=== PATIENT | female | born 1950 | race Caucasian/White ===

== ENCOUNTER → 2017-08-29 | Outpatient (CLI) | payer OTHER | END | disposition home or self-care (01) | LOC: C.PAPS 09:20 | PROVIDERS: ATTEND Family Medicine | DX: Z00.00 Encounter for general adult medical examination without abnormal findings (principal) ==

== ENCOUNTER → 2017-10-06 | Outpatient (CLI) | payer OTHER ==
--- NOTE | 2017-10-07 07:45 | MAMMOGRAPHY REPORT ---
BILATERAL DIGITAL SCREENING MAMMOGRAM TOMOSYNTHESIS WITH CAD: 10/06/2017 CLINICAL HISTORY: Routine screening. Patient has no complaints. TECHNIQUE: Breast tomosynthesis in addition to standard 2D mammography was performed. Current study was also evaluated with a Computer Aided Detection (CAD) system. COMPARISON: Comparison is made to exams dated: 02/19/2016 mammogram, 02/14/2015 mammogram, 12/03/2013 m ammogram, 11/15/2010 mammogram, 11/07/2010 mammogram, and 08/09/2009 mammogram - [facility]. BREAST COMPOSITION: There are scattered areas of fibroglandular density in both breasts. FINDINGS: There is a possible grouping of microcalcifications in the upper outer middle one third of the left breast, for which additional spot magnification views are recommended. Possible architectu ral distortion in the medial, middle one third of the left breast, best seen on the CC view, but thou ght to project inferiorly based on the MLO view, for which additional spot compression tomosynthesis views and possible ultrasound are recommended. There are mild vascular calcifications in the breasts. No other suspicious mass, architectural distor tion or cluster of microcalcifications is seen. IMPRESSION: ACR BI-RADS CATEGORY 0: INCOMPLETE EVALUATION: NEED ADDITIONAL IMAGING EVALUATION The possible grouping of microcalcifications in the upper outer quadrant of the left breast and possi ble area of architectural distortion in the medial left breast need additional imaging evaluation. The patient will be called to schedule an appointment. Approximately 10% of breast cancers are not detected with mammography. A negative mammographic report should not delay biopsy if a clinically suggestive mass is present. Génesis Lemus M.D. ay/:10/06/2017 13:31:38 Neurological Surgery Teacher: Natasha GE(R)(M), [facility] letter sent: Addl Imaging 0 BI-RADS Code: ACR BI-RADS Category 0: Incomplete Evaluation: Need Additional Imaging Evaluation
== END | disposition home or self-care (01) ==
LOC: C.MAMM 12:51
PROVIDERS: ATTEND Family Medicine
DX: Z12.31 Encounter for screening mammogram for malignant neoplasm of breast (principal); R92.0 Mammographic microcalcification found on diagnostic imaging of breast

== ENCOUNTER → 2017-10-15 | Outpatient (CLI) | payer OTHER ==
--- NOTE | 2017-10-15 15:31 | MAMMOGRAPHY REPORT ---
UNILATERAL LEFT DIGITAL DIAGNOSTIC MAMMOGRAM TOMOSYNTHESIS AND TARGETED LEFT ULTRASOUND: 10/15/2017 CLINICAL HISTORY: 67-year-old woman called back from screening mammography for a possible area of arc hitectural distortion in the medial left breast, and left upper outer quadrant microcalcifications. TECHNIQUE: Spot magnification left CC, ML; spot compression tomosynthesis left CC and MLO views were obtained. COMPARISON: Comparison is made to exams dated: 10/06/2017 mammogram - , mammogram, 02/14/2015 mammogram, 12/03/2013 mammogram, 11/15/2010 mammogram, and 11/07/2010 mamm [facility]. BREAST COMPOSITION: There are scattered areas of fibroglandular density in the left breast. FINDINGS: The spot magnification views of the left breast demonstrate 2 coarse benign calcifications and loosely grouped very faint punctate/amorphous microcalcifications spanning approximately 2 cm in the upper outer middle to posterior left breast. There is no associated asymmetry, architectural dis tortion or mass. When comparing back to prior available mammograms, the fainter microcalcifications have likely been present dating back to 2013 and are therefore likely benign, possibly increased in c onspicuity due to mammography unit and technique. The coarser calcifications have a benign morpholog y. The spot compression tomosynthesis views of the left breast demonstrate effacement of the questionabl e area of distortion in the medial, middle one third of the breast. There is no definite persistent mass or focal area of architectural distortion identified. Targeted ultrasound was performed throughout the medial left breast in the area of effacing distortio n. There is no evidence of a suspicious mass. However, incidentally identified in the 10:00 left br east, 1 cm from the nipple, is an oval parallel circumscribed hypoechoic solid versus cystic mass, wi thout evidence of posterior acoustic enhancement or posterior shadowing. This mass measures 4.2 x 2. 1 x 7.1 mm and most likely represents a complicated cyst or benign fibroadenoma. However, given that it is newly visualized on ultrasound, a six-month follow-up targeted ultrasound is recommended to en sure stability. IMPRESSION: ACR-BI-RADS CATEGORY 3: PROBABLY BENIGN, TARGETED ULTRASOUND ACR-BI-RADS CATEGORY 3: PRO BABLY BENIGN 1. There are loosely grouped punctate and amorphous as well as coarse calcifications spanning 2 cm i n the left upper outer quadrant, in which many of the sphincter calcifications have likely been prese nt dating back to 2013 but are better visualized due to technique. Nevertheless, a short interval fo llow-up left diagnostic mammogram including spot magnification views is recommended to ensure stabili ty in 6 months. 2. There is effacement of the questionable area of architectural distortion in the medial left breas t, and no suspicious sonographic correlate or architectural distortion appreciated on ultrasound. Niraj ramirez, incidentally seen in the 10:00 left breast, 1 cm from the nipple is a benign-appearing oval ci rcumscribed 7 mm mass for which a repeat targeted ultrasound is recommended to ensure stability in 6 months. These results and recommendations were discussed with the patient at the time of the exam. Approximately 10% of breast cancers are not detected with mammography. A negative mammographic report should not delay biopsy if a clinically suggestive mass is present. Génesis Lemus M.D. ay/:10/15/2017 11:51:38 Director Of Player Personnel: uSzanne GE(Kriss)(M), letter sent: Follow Up Recommended 3 BI-RADS Code: ACR-BI-RADS Category 3: Probably Benign Ultrasound BI-RADS: ACR-BI-RADS Category 3: Pr obably Benign
== END | disposition home or self-care (01) ==
LOC: C.MAMM 09:31
PROVIDERS: ATTEND Family Medicine
DX: R92.0 Mammographic microcalcification found on diagnostic imaging of breast (principal)

== ENCOUNTER 2019-08-29 23:17 | Observation (INO) ==
[2019-08-29] MEDS ORDERED: ALBUT/IPRATROP 3MG/0.5MG NEB 3 ML VIAL NEB STA (23:43)
[2019-08-29] MEDS ORDERED: ACETAMINOPHEN 500 MG TAB PO STA (23:43)
[2019-08-29] MEDS ORDERED: SODIUM CHLORIDE 0.9% 1000ML 1,000 ML IV ONE (23:43)
[2019-08-29] MEDS ORDERED: HYDROCODONE/HOMATROPINE SYRUP 5MG/1.5MG 5ML UDP PO STA (23:43)
[2019-08-30 00:15] LABS: Basophils # (auto) 0.02 K/uL (0-0.2); Basophils % (auto) 0.2 %; Eosinophils # (auto) 0.08 K/uL (0-0.5); Eosinophils % (auto) 0.6 %; Hematocrit (blood only) 43.5 % (37-47); Immature Granulocytes # (auto) 0.03 K/uL (0.00-0.02); Immature Granulocytes % (auto) 0.2 %; Lymphocytes # (auto) 1.32 K/uL (1.2-3.4); Lymphocytes % (auto) 10.3 %; Mean Corpuscular Hemoglobin 30.1 pg (25-34); Mean Corpuscular Hgb Conc 34.5 g/dL (32-36); Mean Corpuscular Volume 87.3 fL (80-100); Monocytes # (auto) 0.75 K/uL (0.11-0.59); Monocytes % (auto) 5.9 %; Neutrophils # (auto) 10.57 K/uL (1.4-6.5); Neutrophils % (auto) 82.8 %; Platelet Count 279 K/uL (130-400); RDW Coefficient of Variation 13.8 % (11.5-14.5); RDW Standard Deviation 44.2 fL (36.4-46.3); Red Blood Count 4.98 M/uL (4.2-5.4); White Blood Count 12.77 K/uL (4.8-10.8)
[2019-08-30 00:29] LABS: Alanine Aminotransferase 30 U/L (12-78); Albumin Level 3.9 gm/dl (3.4-5.0); Aspartate Aminotransferase 23 U/L (15-37); BUN Creatinine Ratio 12.8 (10-20); Blood Urea Nitrogen 13 mg/dl (7-18); Carbon Dioxide 25 mmol/L (21-32); Chloride 98 mmol/L (98-107); Creatinine Clr Calc Pharmacy 46.9 ml/min; Est GFR (African American) 69.1; Est GFR (Non-African American) 59.6; Glucose 148 mg/dl (70-99); Potassium 3.3 mmol/L (3.5-5.1); Sodium 131 mmol/L (136-145)
[2019-08-30 00:33] LABS: Albumin Globulin Ratio 0.9 (0.9-2); Alkaline Phosphatase 87 U/L (45-117); Bilirubin,Total 0.6 mg/dl (0.2-1); Globulin 4.1 gm/dl (2.5-4.0); Troponin I < 0.015 ng/ml (0-0.045)
[2019-08-30] MEDS ORDERED: AZITHROMYCIN 500 MG in DEXTROSE 5% 250 ML IV ONE (01:51)
[2019-08-30] MEDS ORDERED: cefTRIAXone SODIUM 1,000 MG/50 ML BAG IV STA (01:51)
--- NOTE | 2019-08-30 02:53 | History & Physical Report ---
Date of Service August 30, 2019 Assessment & Plan (1) Pneumonia: 69yo C female presenting with cough/SOB, LLL PNA in setting of probable Influenza A ( recently tested positive for Influenza A as did grandchildren). Febrile, tachycardic and hypoxic on arrival now improved. Patient is breathing comfortably on 2L NC, saturating 94%. In setting of probable Influenza A concern for superimposed bacterial PNA, streptococcus/staphylococcus. -Admit to medical floor -Continue Tamiflu 75mg po BID. -Vancomycin, Ceftriaxone, Azithromycin -MRSA nasal swab -Continue supplemental O2 as needed -Albuterol HFA as needed -Droplet precautions Present on Admission?: Yes (2) Influenza: Tamiflu 75mg po BID as above -Supportive care, Tylenol, Mucinex, supplemental O2 Present on Admission?: Yes (3) Benign essential hypertension: Blood pressure stable 161/72 -Continue Amlodipine, Lisinopril/HCTZ -Continue to monitor F/E/N - NSS with KCL 20mEq, 20mEq KCL PO, monitor electrolytes, heart healthy diet as tolerated Ppx - Low risk for DVT Code - Full per discussion with patient, at bedside Dispo - Admit to medical floor, supplemental O2 and IV antibiotics Present on Admission?: Yes History of Present Illness Chief Complaint: Pneumonia, presumed influenza Primary Care Provider: Raj Grey MD Demetria Beebe is a 69yo C female with history of HTN/HLP/GERD presenting with cough/SOB. Patient's was recently diagnosed with Influenza A and PNA. He is presently on Tamiflu and Azithromycin. Patient reports a persistent cough over the last 6-7 days as well as body aches, fevers, chills and sweats. She was started on Tamiflu 75mg po BID x 5 days on 08/26/19. Earlier today she felt slightly improved, however, developed some pleuritic chest discomfort and shoulder pain this evening which prompted her to come to the ER. She reports feeling mildly short of breath, occasional chest heaviness. Otherwise, denies palpitations/abdominal pain/nausea/vomiting/diarrhea. ON arrival to the ER patient febrile 38.4, tachycardic at 103bpm, tachypneic at 22 bpm and saturating 89% on room air. She was administered an Albuterol neb and placed on supplemental O2 with improvement in saturation to 94% on 2L. ER Course: Tylenol, Albuterol, Azithromycin, Ceftriaxone, Hydrocodone, NSS Allergies Allergy/AdvReac Type Severity Reaction Status Date / Time PPD Allergy Unknown Uncoded 08/30/19 00:05 Home Medications Home Medications Medication Instructions Recorded Confirmed Type calcium carb-Ca gluc 500 mg 1 tab PO DAILY #90 tab 01/07/19 08/30/19 Rx calcium-magnesium ox-Mg gluc 250 mg tablet cholecalciferol (vitamin D3) 125 5,000 units PO DAILY #90 tab 01/07/19 08/30/19 Rx mcg (5,000 unit) tablet multivitamin 1 cap PO DAILY #90 cap 01/07/19 08/30/19 Rx selenium 100 mcg tablet 100 mcg PO DAILY #90 tab 01/07/19 08/30/19 Rx vitamin E succinate 200 unit tablet 200 units PO DAILY #90 tab 01/07/19 08/30/19 Rx albuterol sulfate 90 mcg/actuation 2 puffs INH QID PRN #18 gm 04/12/19 08/30/19 Rx aerosol inhaler amlodipine 10 mg tablet 10 mg PO DAILY #90 tab 05/24/19 08/30/19 Rx lisinopril 20 1 tab PO DAILY #90 tab 07/08/19 08/30/19 Rx mg-hydrochlorothiazide 12.5 mg tablet ascorbic acid (vitamin C) 1,000 mg 1,000 mg PO DAILY tab 07/29/19 08/30/19 History tablet,extended release oseltamivir 75 mg capsule 75 mg PO BID 5 Days #10 cap 08/26/19 08/30/19 Rx Past Med/Surg History Medical History Benign essential hypertension Chronic GERD Dyslipidemia (Acute) Osteopenia Vitamin D deficiency (Acute) Surgical History H/O oophorectomy History of cholecystectomy Family History Mother Asthma Hypertension Cancer Father Stroke Grandmother Breast cancer Aunt Colorectal cancer Grandfather Myocardial infarction Other No family history of bleeding disorder Social History marital status: Current Living Situation: Spouse current occupational status: retired Feels Safe at Home: Yes Smoking Status: Never smoker Second Hand Exposure: No ; Hx Alcohol Use: No Hx Substance Use: No Dental Care, Regularly: Yes Physical Activity Frequency: 1-2 Times per Week Seatbelt Use: always Do you think of yourself as: straight/heterosexual Review of Systems Review of Systems: All systems reviewed & are unremarkable except as noted in HPI & below Physical Exam Physical Exam: General: patient ill in appearance, +cough, NAD, non-toxic in appearance, AA&O x 4 Skin: warm, dry, intact, no rashes or lesions HEENT: NC/AT, PERRL, EOMI, anicteric sclera, conjunctiva without injection, external ear normal to inspection and nontender, nares patent, moist mucus membranes, dentition intact, no oropharyngeal lesions, neck supple, trachea mid line, no LAD, no thyromegaly, no JVD Heart: +S1/S2, regular, no m/r/g Lungs: equal air entry bilaterally, +faint crackles in left base, no rhonchi/wheeze Abd: +BS, soft, NT/ND, no masses/organomegaly/ascites Ext: warm, 2+ pulses in UE/LE bilaterally, no clubbing/cyanosis or edema Neuro: nonfocal, patient AA&O x 4, speech intact, no facial droop, moving all extremities on command with equal strength 5/5 Results & Data Vital Signs (Past 12 Hours) Vital Signs Temp Pulse Pulse Resp BP Pulse Ox 08/30/19 01:36 89 L 08/30/19 01:30 89 L 08/30/19 01:20 92 08/30/19 01:00 88 18 89 L 08/30/19 00:50 91 H 19 90 08/30/19 00:40 92 H 20 91 08/30/19 00:30 97 H 20 92 08/30/19 00:20 97 H 22 95 08/30/19 00:17 102 H 26 H 95 08/30/19 00:01 97 H 18 98 08/29/19 23:27 38.4 C H 103 H 22 161/72 H 97 Laboratory Results Lab Results 08/29/19 08/29/19 08/29/19 Range/Units 23:57 23:57 23:57 WBC 12.77 H (4.8-10.8) K/uL RBC 4.98 (4.2-5.4) M/uL Hgb 15.0 (12.0-16.0) g/dL Hct 43.5 (37-47) % MCV 87.3 (80-100) fL MCH 30.1 (25-34) pg MCHC 34.5 (32-36) g/dL RDW Std Deviation 44.2 (36.4-46.3) fL RDW Coeff of Usman 13.8 (11.5-14.5) % Plt Count 279 (130-400) K/uL MPV 9.0 (7.4-10.4) fL Immature Gran % (Auto) 0.2 % Neut % (Auto) 82.8 % Lymph % (Auto) 10.3 % [place] % (Auto) 5.9 % Eos % (Auto) 0.6 % Baso % (Auto) 0.2 % Immature Gran # (Auto) 0.03 H (0.00-0.02) K/uL Neut # (Auto) 10.57 H (1.4-6.5) K/uL Lymph # (Auto) 1.32 (1.2-3.4) K/uL [place] # (Auto) 0.75 H (0.11-0.59) K/uL Eos # (Auto) 0.08 (0-0.5) K/uL Baso # (Auto) 0.02 (0-0.2) K/uL Absolute Nucleated RBC 0.00 (0-0) K/uL Nucleated RBC % (auto) 0.0 % Sodium 131 L (136-145) mmol/L Potassium 3.3 L (3.5-5.1) mmol/L Chloride 98 (98-107) mmol/L Carbon Dioxide 25 (21-32) mmol/L Anion Gap 9.0 (3-11) BUN 13 (7-18) mg/dl Creatinine 0.97 (0.6-1.2) mg/dl Est Cr Clr Drug Dosing 46.9 ml/min Est GFR ( Amer) 69.1 Est GFR (Non-Af Amer) 59.6 BUN/Creatinine Ratio 12.8 (10-20) Glucose 148 H (70-99) mg/dl Lactate 1.8 (0.4-2.0) mmol/L Calcium 9.0 (8.5-10.1) mg/dl Total Bilirubin 0.6 (0.2-1) mg/dl AST 23 (15-37) U/L ALT 30 (12-78) U/L Alkaline Phosphatase 87 (45-117) U/L Troponin I < 0.015 (0-0.045) ng/ml Total Protein 8.0 (6.4-8.2) gm/dl Albumin 3.9 (3.4-5.0) gm/dl Globulin 4.1 H (2.5-4.0) gm/dl Albumin/Globulin Ratio 0.9 (0.9-2) Diagnostic Findings CXR - possible LLL infiltrate, no clear rib fractures Code Status & VTE Plan Code Status FULL VTE Prophylaxis Plan VTE Prophylaxis will be ordered: Yes PG Care Time/CCT Total # of Minutes Spent Total Time Spent with Patient: Total time spent is greater than 50% in coordination of care (as documented) at patient's floor/unit and/or counseling patient: Coding Level of Care Code 32378 OBS Care - Level 2 Diagnoses Pneumonia J18.9 Pneumonia type: due to unspecified organism Laterality: left Lung location: lower lobe of lung Influenza J11.1 Benign essential hypertension I10 (1) Pneumonia Pneumonia type: due to unspecified organism Laterality: left Lung location: lower lobe of lung Qualified Code(s): J18.9 - Pneumonia, unspecified organism
[2019-08-30] MEDS ORDERED: POTASSIUM CHLORIDE 20 MEQ TABCR PO STA (04:13)
[2019-08-30] MEDS ORDERED: ONDANSETRON INJ 2 MG/ML 2 ML VIAL IV PRN (04:13)
[2019-08-30] MEDS ORDERED: VANCOMYCIN HCL 1,000 MG in SODIUM CHLORIDE 0.9% 250 ML IV SCH (04:13)
[2019-08-30] MEDS ORDERED: VANCOMYCIN CONSULT ACTIVE PRN (04:13)
[2019-08-30] MEDS ORDERED: ALBUTEROL HFA 8 GM INHALER INH PRN (04:13)
[2019-08-30] MEDS ORDERED: ACETAMINOPHEN 325 MG TAB PO PRN (04:13)
[2019-08-30 04:29] LABS: Magnesium 1.7 mg/dl (1.8-2.4); Phosphorus 2.7 mg/dl (2.5-4.9)
[2019-08-30] MEDS: NSS + 20MEQ KCL 20 MEQ/1,000 ML BAG IV SCH ×2 (04:53→18:24)
--- NOTE | 2019-08-30 05:32 | Emergency Department Note ---
Entered by Nicolette Matamoros acting as a scribe for Jhonatan Sierra MD ED Provider Note Name: LAWRENCE VARGAS Age: 69 Arrives Via: Walk-In Informant: Patient CC: Flu Like Symptoms HPI: [id number] arrives for evaluation of flu like symptoms. The patient states that her was recently diagnosed with influenza A 1 week ago. She reports that she began to experience intermittent flu like symptoms 6 days ago including a persistent cough and rhinorrhea. She was prescribed Tamiflu 2 days ago for her symptoms. Today she was coughing and suddenly began to experience sharp pain on the left side of her chest that radiates into her left flank. She admits that she feels better now and that she felt fine earlier today (cleaned house). Of note, she adds that she pulled a back muscle a few days ago after getting off of the couch. Additionally she had normal PO intake today. The patient took one baby [employer] C[employer]. She denies rashes and recent travel. ROS: See above HPI for pertinent positives & negatives. A total of 10 systems reviewed and were otherwise negative. Past Medical History:HTN, Chronic GERD, Hypercholesterolemia Past Surgical History:Oophorectomy, Cholecystectomy Family History:See Below Social History:Never smoker, no ETOH or drug use Home Medications:See Below Allergies:PPD Vitals: * BP: 161/72 * Pulse: 103 * Resp: 22 * Temp: 38.4 C * O2 Sat: 97 on RA Physical Exam: GENERAL: Patient is ill appearing and in mild distress. EYES: No scleral icterus, unremarkable pupils. ENT: Mucous membranes dry, dehydrated appearing, no nasal congestion. NECK: No masses appreciated, nomeningismus, trachea is midline. Erythema in posterior oropharynx. RESPIRATORY: No dyspnea. Clear to auscultation and equal bilaterally. No rhonchi. Slight wheezing in all lung garcia. CARDIOVASCULAR: Tachycardic rate and regular rhythm.No murmurs, rubs, gallops appreciated. GASTROINTESTINAL: Abdomen soft, non-tender, no peritonitis.Bowel sounds positive.No masses appreciated. BACK: No midline tenderness, no CVA tenderness EXTREMITIES: Normal motion all extremities, no cyanosis, no edema. NEUROLOGIC: Alert and oriented, no acute motor or sensory deficits, no focal weakness, cranial nerves grossly intact. SKIN: No rash, no jaundice, no diaphoresis. Feels warm to touch. ED Course: Prior Medical Record, Triage/Nursing Notes, Medications, Allergies reviewed by Me Vital Signs: reviewed and remarkable for febrile, tachy, HTN Labs:Reviewed and remarkable for mild wbc elevation, normal lactate Interventions: saline lock, Rocephin 1gm IV, azithro 500mg IV, nSS bolus 1 L IV, Duoneb Imaging:X ray results are stated below per my interpretation: Chest with left rib views: 4 view: No acute fracture/pneumothorax, there is LLL infiltrate, no effusion, normal cardiac border. EKG:Per My Interpretation: Indication Left Chest Pain: NSR 100 bpm, qtc 436. No Ectopy. No Ischemia. No previous for comparison laboratory monitor: An Order was placed for continuous cardiac monitoring. The monitor shows a rate of 80 with a normal sinus rhythm and a pulse ox 88-89% on RA. Reassessments/Times: 2337: Past medical records reviewed. The patient was evaluated in room B10. A complete history and physical exam was performed. 0141: I checked on the patient and updated her on test results. She is currently hypoxic at 88% on RA. I discussed plan to admit. The patient verbally expressed understanding and agreement of the treatment plan. The patient will be evaluated for further treatment. 0156: Paged Dr. Muñoz, [facility] Hospitalist. 0213: I spoke to Dr. Muñoz who will further evaluate the patient. Blood cultures have been ordered prior to giving the patient antibiotics. Blood pressure:Elevated - Further Management by Hospitalist Disposition:Hospitalization. Differentials:Differential: Viral, Pharyngitis, Cellulitis, Pneumonia, Influenza, Meningitis, Sepsis, Bacteremia, UTI/Pyelonephritis, Endocrine, Toxicologic, amongst other pathologies entertained. Medical Decision Makin yr old healthy female with history of GERD, vitd deficiency, HTN, HLD, arrives with several days viral like illness and tonight worsening cough and left chest pain. EKG and trop not consistent with ACS. CXR without pneumothorax nor rib fracture appreciated though does have LLL infiltrate. She has already had Tamiflu this evening and given her is Flu A positive and her flu like symptoms this is consistent with influenza, complicated by development of LLL infiltrate on cxr. Labs looking OK. Given terell with improvement in breathing but patient started desating requiring NC O2 despite quite some time post neb. Suspect as hydrated the infiltrate has worsened. Breathing comfortably on NC O2. As requiring NC O2 will need to come in for further management. Given all of this I think it quite unlikely that there is PE/dissection. Stable at time of hospitalization. Impression: Left lower lobe pneumonia Hypoxia Influenza The scribe's documentation has been prepared under my direction and personally reviewed by me in its entirety. I confirm that the note above accurately reflects all work, treatment, procedures, and medical decision making performed by me. Jhonatan Sierra MD Impression & Plan Left lower lobe pneumonia, Influenza, Hypoxia Past Med/Surg History Medical History Benign essential hypertension Chronic GERD Dyslipidemia (Acute) Osteopenia Vitamin D deficiency (Acute) Surgical History H/O oophorectomy History of cholecystectomy Family History Mother Asthma Hypertension Cancer Father Stroke Grandmother Breast cancer Aunt Colorectal cancer Grandfather Myocardial infarction Other No family history of bleeding disorder Social History Preferred Language: Arabic Communication Ability: Effective Flower Picker Required: No Beliefs That Will Affect Care: None marital status: Current Living Situation: Spouse current occupational status: retired Feels Safe at Home: Yes Smoking Status: Never smoker Second Hand Exposure: No ; Hx Alcohol Use: No Hx Substance Use: No Dental Care, Regularly: Yes Physical Activity Frequency: 1-2 Times per Week Seatbelt Use: always Do you think of yourself as: straight/heterosexual Results & Data Vital Signs Vital Signs - 24 hr 08/29/19 23:27 08/30/19 00:01 08/30/19 00:17 Temperature 38.4 C H Temperature Source Oral Pulse Rate 103 H 102 H Pulse Rate [Right Finger] 97 H Pulse Rate from SpO2 Sensor 96 H Respiratory Rate 22 18 26 H Respiratory Effort / Characteristics Non-Labored Spontaneous Blood Pressure 161/72 H Blood Pressure Mean 101 Blood Pressure Position Sitting Pulse Oximetry 97 98 95 Oxygen Delivery Method Room Air Room Air Oxygen Flow Rate Sepsis Recent Fever Within 48 Hours Yes Sepsis Action Taken by Nursing No Action Required Oxygen Flow Rate - Titration Pulse Oximetry Post Tiitration 08/30/19 00:20 08/30/19 00:30 08/30/19 00:40 Temperature Temperature Source Pulse Rate 97 H 97 H 92 H Pulse Rate [Right Finger] Pulse Rate from SpO2 Sensor 97 H 98 H 92 H Respiratory Rate 22 20 20 Respiratory Effort / Characteristics Blood Pressure Blood Pressure Mean Blood Pressure Position Pulse Oximetry 95 92 91 Oxygen Delivery Method Oxygen Flow Rate Sepsis Recent Fever Within 48 Hours Sepsis Action Taken by Nursing Oxygen Flow Rate - Titration Pulse Oximetry Post Tiitration 08/30/19 00:50 08/30/19 01:00 08/30/19 01:20 Temperature Temperature Source Pulse Rate 91 H 88 Pulse Rate [Right Finger] Pulse Rate from SpO2 Sensor 89 88 90 Respiratory Rate 19 18 Respiratory Effort / Characteristics Blood Pressure Blood Pressure Mean Blood Pressure Position Pulse Oximetry 90 89 L 92 Oxygen Delivery Method Oxygen Flow Rate Sepsis Recent Fever Within 48 Hours Sepsis Action Taken by Nursing Oxygen Flow Rate - Titration Pulse Oximetry Post Tiitration 08/30/19 01:30 08/30/19 01:36 08/30/19 02:02 Temperature Temperature Source Pulse Rate 94 H Pulse Rate [Right Finger] Pulse Rate from SpO2 Sensor 85 Respiratory Rate 15 Respiratory Effort / Characteristics Blood Pressure Blood Pressure Mean Blood Pressure Position Pulse Oximetry 89 L 89 L Oxygen Delivery Method Room Air Oxygen Flow Rate 0 Sepsis Recent Fever Within 48 Hours Sepsis Action Taken by Nursing Oxygen Flow Rate - Titration 2 Pulse Oximetry Post Tiitration 93 08/30/19 02:03 08/30/19 02:30 08/30/19 02:39 Temperature Temperature Source Pulse Rate 89 91 H 83 Pulse Rate [Right Finger] Pulse Rate from SpO2 Sensor 88 90 86 Respiratory Rate 20 28 H 20 Respiratory Effort / Characteristics Blood Pressure 131/57 L 127/67 Blood Pressure Mean 82 90 Blood Pressure Position Pulse Oximetry 93 96 97 Oxygen Delivery Method Oxygen Flow Rate Sepsis Recent Fever Within 48 Hours Sepsis Action Taken by Nursing Oxygen Flow Rate - Titration Pulse Oximetry Post Tiitration Laboratory Data Result diagrams: 08/29/19 23:57 08/29/19 23:57 Lab Results 08/29/19 08/29/19 08/29/19 Range/Units 23:57 23:57 23:57 WBC 12.77 H (4.8-10.8) K/uL RBC 4.98 (4.2-5.4) M/uL Hgb 15.0 (12.0-16.0) g/dL Hct 43.5 (37-47) % MCV 87.3 (80-100) fL MCH 30.1 (25-34) pg MCHC 34.5 (32-36) g/dL RDW Std Deviation 44.2 (36.4-46.3) fL RDW Coeff of Usman 13.8 (11.5-14.5) % Plt Count 279 (130-400) K/uL MPV 9.0 (7.4-10.4) fL Immature Gran % (Auto) 0.2 % Neut % (Auto) 82.8 % Lymph % (Auto) 10.3 % [place] % (Auto) 5.9 % Eos % (Auto) 0.6 % Baso % (Auto) 0.2 % Immature Gran # (Auto) 0.03 H (0.00-0.02) K/uL Neut # (Auto) 10.57 H (1.4-6.5) K/uL Lymph # (Auto) 1.32 (1.2-3.4) K/uL [place] # (Auto) 0.75 H (0.11-0.59) K/uL Eos # (Auto) 0.08 (0-0.5) K/uL Baso # (Auto) 0.02 (0-0.2) K/uL Absolute Nucleated RBC 0.00 (0-0) K/uL Nucleated RBC % (auto) 0.0 % Sodium 131 L (136-145) mmol/L Potassium 3.3 L (3.5-5.1) mmol/L Chloride 98 (98-107) mmol/L Carbon Dioxide 25 (21-32) mmol/L Anion Gap 9.0 (3-11) BUN 13 (7-18) mg/dl Creatinine 0.97 (0.6-1.2) mg/dl Est Cr Clr Drug Dosing 46.9 ml/min Est GFR ( Amer) 69.1 Est GFR (Non-Af Amer) 59.6 BUN/Creatinine Ratio 12.8 (10-20) Glucose 148 H (70-99) mg/dl Lactate 1.8 (0.4-2.0) mmol/L Calcium 9.0 (8.5-10.1) mg/dl Phosphorus 2.7 (2.5-4.9) mg/dl Magnesium 1.7 L (1.8-2.4) mg/dl Total Bilirubin 0.6 (0.2-1) mg/dl AST 23 (15-37) U/L ALT 30 (12-78) U/L Alkaline Phosphatase 87 (45-117) U/L Troponin I < 0.015 (0-0.045) ng/ml Total Protein 8.0 (6.4-8.2) gm/dl Albumin 3.9 (3.4-5.0) gm/dl Globulin 4.1 H (2.5-4.0) gm/dl Albumin/Globulin Ratio 0.9 (0.9-2) Administered Medications Potassium Chloride/Sodium Chloride (Normal Saline W/20 Meq Kcl) 20 meq in 1,000 mls @ 80 mls/hr IV .[id number] ANGELITA Stop: 09/29/19 04:29 Last Admin: 08/30/19 04:53 Dose: 80 mls/hr Documented by: [id number] Vancomycin HCl 1,500 mg/ (Sodium Chloride) 530 mls @ 200 mls/hr IV TODAY@0500 ANGELITA Stop: 08/30/19 08:38 Last Admin: 08/30/19 04:53 Dose: 200 mls/hr Documented by: [id number] Discontinued Medications Acetaminophen (Tylenol) 1,000 mg PO NOW STA Stop: 08/29/19 23:44 Last Admin: 08/30/19 00:11 Dose: 1,000 mg Documented by: [id number] Albuterol (Duoneb) 3 ml NEB NOW STA Stop: 08/29/19 23:44 Last Admin: 08/30/19 00:01 Dose: 3 ml Documented by: [id number] Hydrocodone Bit/Homatropine Methylb (Hycodan) 5 ml PO NOW STA Stop: 08/29/19 23:44 Last Admin: 08/30/19 00:11 Dose: 5 ml Documented by: [id number] Sodium Chloride (Nss 1000ml) 1,000 mls @ 999 mls/hr IV .[id number] ONE Stop: 08/30/19 00:43 Last Infusion: 08/30/19 01:15 Dose: 0 mls/hr Documented by: [id number] Admin: 08/30/19 00:12 Dose: 999 mls/hr Documented by: [id number] Ceftriaxone Sodium (Rocephin) 1,000 mg in 50 mls @ 100 mls/hr IV NOW STA Stop: 08/30/19 02:20 Last Infusion: 08/30/19 02:33 Dose: 0 mls/hr Documented by: [id number] Admin: 08/30/19 01:59 Dose: 100 mls/hr Documented by: [id number] Azithromycin 500 mg/ Dextrose 255 mls @ 125 mls/hr IV ONE ONE Stop: 08/30/19 03:53 Last Infusion: 08/30/19 04:47 Dose: 0 mls/hr Documented by: [id number] Admin: 08/30/19 02:34 Dose: 125 mls/hr Documented by: [id number] Potassium Chloride (Klor-Con M20) 20 meq PO NOW STA Stop: 08/30/19 04:14 Last Admin: 08/30/19 04:53 Dose: 20 meq Documented by: [id number] Discharge Plan Visit Data *Final* Discharge Date/Time: 08/30/19 03:40 Chief Complaint: Flu Like Symptoms Stated Complaint: FLU LIKE SYMTOMS, SIDE PAINS,SHOULDER PAINS ED Provider: Jhonatan Sierra Discharge Problem: Left lower lobe pneumonia, Influenza, Hypoxia Patient Disposition: Admitted As Inpatient Discharge Instructions Interventions: ED Discharge Assessment Last Done: 08/30/19 03:40 Discharge Problem: Left lower lobe pneumonia Qualifiers: Pneumonia type: due to unspecified organism Qualified Code(s): J18.9 - Pneumonia, unspecified organism The scribe's documentation has been prepared under my direction and personally reviewed by me in its entirety. I confirm that the note above accurately reflects all work, treatment, procedures, and medical decision making performed by me.
[2019-08-30] MEDS ORDERED: VANCOMYCIN HCL 1,500 MG in SODIUM CHLORIDE 0.9% 500 ML IV SCH (06:00)
--- NOTE | 2019-08-30 06:34 | XRay Report ---
XR ribs LT min 3V w CXR1V CLINICAL HISTORY: Left upper chest pain s/p coughing COMPARISON STUDY: No previous studies for comparison. FINDINGS: Nondisplaced cortical fracture left sixth rib. All remaining ribs are unremarkable. Small parenchymal infiltrate and/or atelectasis left base. No evidence for pneumothorax. IMPRESSION: 1. Nondisplaced cortical fracture left sixth rib. 2. Small parenchymal infiltrate and/or atelectasis left base. ACT 112: Negative or not required by law. The above report was generated using voice recognition software. It may contain grammatical, syntax or spelling errors. Electronically signed by: Kolton Hector M.D. 08/30/2019 6:33 AM
[2019-08-30] MEDS: LISINOPRIL/HCTZ 20/12.5MG 1 TAB TAB PO SCH (08:00)
[2019-08-30] MEDS: guaiFENesin 600 MG TABCR PO SCH ×2 (08:00→21:19)
[2019-08-30] MEDS: AMLODIPINE BESYLATE 5 MG TAB PO SCH (08:01)
[2019-08-30] MEDS: OSELTAMIVIR PHOSPHATE SUSP 30 MG/5 ML UDP PO SCH ×2 (08:03→21:19)
[2019-08-30] MEDS ORDERED: OSELTAMIVIR PHOSPHATE 75 MG CAP PO SCH (09:00)
[2019-08-30] MEDS ORDERED: COUGH DROP (SUGAR FREE) LOZ 24 LOZ/1 BOX BUCCAL PRN (10:45)
--- NOTE | 2019-08-30 14:41 | Electrocardiogram Report ---
Test Reason : Blood Pressure : / mmHG Vent. Rate : 100 BPM Atrial Rate : 100 BPM P-R Int : 150 ms QRS Dur : 086 ms QT Int : 338 ms P-R-T Axes : 067 033 048 degrees QTc Int : 436 ms Normal sinus rhythm Possible Left atrial enlargement Borderline ECG No previous ECGs available Confirmed by Dawson Mariscal ([id number]) on 08/30/2019 2:41:16 PM Referred By: REFERRED SELF Confirmed By:Dawson Mariscal
[2019-08-30] MEDS ORDERED: VANCOMYCIN HCL 750 MG in SODIUM CHLORIDE 0.9% 250 ML IV SCH (16:00)
--- NOTE | 2019-08-30 17:34 | Hospitalist Progress Note ---
Date of Service August 30, 2019 Assessment & Plan (1) Pneumonia: - Pt presented with flu-like symptoms for about 6 days ( and grandchildren tested pos for flu A) - was feeling better but then her symptoms worsened -- No recent travel or exposures to someone in majorly affected coronavirus areas -- Febrile, tachy, and hypoxic on arrival - all now improved - Appropriate saturations on RA; Suspected superimposed bacterial infection on a recovering influenza - Continue renally adjusted Tamiflu; Ceftriaxone/Zithromax - MRSA swap negative and will D/C Vanc - Albuterol PRN; Mucinex BID; Droplet precautions (2) Influenza: -Supportive care - treatment as discussed above -- Given positive family members and started treatment as outpatient - no reason to test in-house (3) Rib fracture: - CXR/Rib series - nondisplaced cortical fracute of L 6th rib - This may be partially in the setting of osteoporosis/frequent coughing - reports pain is controlled at this time (4) Benign essential hypertension: - Stable - Continue Amlodipine 10 mg daily; Lisinopril/HCTZ daily Disposition: Off supplemental O2. Will monitor through the day - if continues to do well can D/C home tomorrow with oral Abx Admission and Anticipated Discharge Date Admission Date: August 30, 2019 Supervising Physician Co-Signing Physician Notes Attending Attestation - Chart reviewed in detail, care plan d/w JIM Guerra. I agree w/ the moon components of her documentation. 69yo female w/ fluA infection. Probable bacterial superinfection with LLL pneumonia. Left-sided solitary rib fracture - suspect Fx occurred due to coughing. Also with hyponatremia, hypokalemia, and hypomagnesemia - replace all electrolyte deficiencies. HCTZ use could explain the low Na, K, and mag. Repeat labs am. Jamarcus Pereira MD Subjective Reports feeling a bit better since coming in. Having a productive cough. Some heaviness in the L chest around that L side which would correlate with the rib fx possible. Pain is pleuritic. No longer having desaturations and no further tachycardia since admission. Given how her symptoms were improving then worsened will treat for a secondary pneumonia. She reports a dry irritated throat however not sore. She denies any recent travel or exposure to anyone who may have traveled to areas with higher cases of coronavirus Review of Systems Constitutional: no fever and no chills Respiratory: + cough, + chest congestion and + sputum production; no dyspnea Cardiovascular: + chest pain (intermittent - pleuritic component); no palpitations and no lightheadedness Gastrointestinal: no abdominal pain, no nausea, no vomiting, no constipation and no diarrhea/loose stools Genitourinary: no dysuria Integumentary: no rash Physical Exam Constitutional: WD/WN, vitals as above Eyes: + anicteric sclerae ENMT: Ears: no hearing impairment Mouth: oral mucous membranes not dry Neck: trachea midline Respiratory: normal respiratory effort and + cough Auscultation: lungs clear to auscultation bilaterally and + crackles (mild in L base but improves with further deep breaths) Cardiovascular: RRR, no murmur, no edema Gastrointestinal (Abdomen): Inspection/Auscultation: normal bowel sounds Percussion/Palpation: abdomen soft; abdomen nontender Musculoskeletal: no cyanosis or clubbing, extremities motor strength 5/5 Skin: no rashes, warm and dry Neurologic: moves all extremities Psychiatric: A+Ox3, euthymic affect Results & Data ([facility]) Vital Signs (Past 12 Hours) Vital Signs Temp Pulse Resp BP BP Pulse Ox 08/30/19 15:08 36.6 C 72 18 123/69 95 08/30/19 07:41 36.5 C 78 18 118/61 96 PG Care Time/CCT Total # of Minutes Spent Total Time Spent with Patient: Total time spent is greater than 50% in coordination of care (as documented) at patient's floor/unit and/or counseling patient: Coding Level of Care Code 71143 Subseq Hosp Care Lvl 2 Diagnoses Pneumonia J18.9 Laterality: left Lung location: lower lobe of lung Pneumonia type: due to unspecified organism Influenza J11.1 Rib fracture S22.39XA Benign essential hypertension I10 (1) Pneumonia Laterality: left Lung location: lower lobe of lung Pneumonia type: due to unspecified organism Qualified Code(s): J18.9 - Pneumonia, unspecified organism
[2019-08-31] MEDS ORDERED: cefTRIAXone SODIUM 2,000 MG in DEXTROSE 5% 50 ML IV SCH (01:00)
[2019-08-31] MEDS ORDERED: AZITHROMYCIN 250 MG in DEXTROSE 5% 250 ML IV SCH (02:00)
[2019-08-31 06:11] LABS: Basophils # (auto) 0.02 K/uL (0-0.2); Basophils % (auto) 0.2 %; Eosinophils # (auto) 0.35 K/uL (0-0.5); Eosinophils % (auto) 4.3 %; Hematocrit (blood only) 37.9 % (37-47); Hemoglobin 12.4 g/dL (12.0-16.0); Immature Granulocytes # (auto) 0.03 K/uL (0.00-0.02); Immature Granulocytes % (auto) 0.4 %; Lymphocytes % (auto) 27.3 %; Mean Corpuscular Hemoglobin 29.2 pg (25-34); Mean Corpuscular Hgb Conc 32.7 g/dL (32-36); Mean Corpuscular Volume 89.2 fL (80-100); Mean Platelet Volume 9.4 fL (7.4-10.4); Monocytes # (auto) 0.74 K/uL (0.11-0.59); Monocytes % (auto) 9.2 %; Neutrophils # (auto) 4.71 K/uL (1.4-6.5); Neutrophils % (auto) 58.6 %; Platelet Count 261 K/uL (130-400); RDW Coefficient of Variation 14.1 % (11.5-14.5); RDW Standard Deviation 46.4 fL (36.4-46.3); Red Blood Count 4.25 M/uL (4.2-5.4); White Blood Count 8.05 K/uL (4.8-10.8)
[2019-08-31 07:00] LABS: BUN Creatinine Ratio 15.2 (10-20); Creatinine Clr Calc Pharmacy 62.3 ml/min; Est GFR (African American) 97.4; Potassium 3.9 mmol/L (3.5-5.1)
[2019-08-31] MEDS: AMLODIPINE BESYLATE 5 MG TAB PO SCH (08:11)
[2019-08-31] MEDS: guaiFENesin 600 MG TABCR PO SCH (08:11)
[2019-08-31] MEDS: LISINOPRIL/HCTZ 20/12.5MG 1 TAB TAB PO SCH (08:11)
[2019-08-31] MEDS: OSELTAMIVIR PHOSPHATE SUSP 30 MG/5 ML UDP PO SCH (08:16)
--- NOTE | 2019-08-31 17:07 | Discharge Summary ---
Date of Service August 31, 2019 Admission HPI Per Admitting Provider Demetria Beebe is a 69yo C female with history of HTN/HLP/GERD presenting with cough/SOB. Patient's was recently diagnosed with Influenza A and PNA. He is presently on Tamiflu and Azithromycin. Patient reports a persistent cough over the last 6-7 days as well as body aches, fevers, chills and sweats. She was started on Tamiflu 75mg po BID x 5 days on 08/26/19. Earlier today she felt slightly improved, however, developed some pleuritic chest discomfort and shoulder pain this evening which prompted her to come to the ER. She reports feeling mildly short of breath, occasional chest heaviness. Otherwise, denies palpitations/abdominal pain/nausea/vomiting/diarrhea. ON arrival to the ER patient febrile 38.4, tachycardic at 103bpm, tachypneic at 22 bpm and saturating 89% on room air. She was administered an Albuterol neb and placed on supplemental O2 with improvement in saturation to 94% on 2L. ER Course: Tylenol, Albuterol, Azithromycin, Ceftriaxone, Hydrocodone, NSS Principal Diagnosis Left Lower Lobe Pneumonia Discharge Exam Constitutional WD/WN, vitals as above Eyes + anicteric sclerae ENMT Ears: no hearing impairment Mouth: oral mucous membranes not dry Neck trachea midline Respiratory normal respiratory effort and + cough Auscultation: lungs clear to auscultation bilaterally and + crackles (mild in L base but improves with further deep breaths) Cardiovascular RRR, no murmur, no edema Gastrointestinal (Abdomen) Inspection/Auscultation: normal bowel sounds Percussion/Palpation: abdomen soft; abdomen nontender Musculoskeletal no cyanosis or clubbing, extremities motor strength 5/5 Skin no rashes, warm and dry Neurologic moves all extremities Psychiatric A+Ox3, euthymic affect Discharge Data Allergies Allergy/AdvReac Type Severity Reaction Status Date / Time PPD Allergy Unknown Uncoded 08/30/19 00:05 Consultations 08/30/19 01:55 ED Decision to Admit Stat Hospital Course (1) Pneumonia: - Pt presented with flu-like symptoms for about 6 days ( and grandchildren tested pos for flu A) - was feeling better but then her symptoms worsened -- No recent travel or exposures to someone in majorly affected coronavirus areas -- Febrile, tachy, and hypoxic on arrival - all now improved - CXR with L base infiltrate which could be atelectasis however given presentation and worsening of symptoms after recovery will treat for CAP - Appropriate saturations on RA and ambulated hallways with O2 in 95-98% range; Suspected superimposed bacterial infection on a recovering influenza - Total would be total of 5 days on Tamflu and therefore complete - Will treat with Cefdinir 300 mg BID x 5 more days and Zithromax 250 mg x 3 more days to complete a 7 day/5 day course respectively - Given Albuterol inhaler from hospital and will also prescribed one - can use QID x 2-3 days then as needed - Mucinex BID and Tessalon perles PRN (2) Influenza: -Supportive care - treatment as discussed above -- Given positive family members and started treatment as outpatient - no reason to test in-house (3) Rib fracture: - CXR/Rib series - nondisplaced cortical fracute of L 6th rib which seems to correlate with the pain that prompted her to come to the hospital however seems some pleuritic as well and improved with a inhalers so maybe some inflammatory causes for the pleuritic pain - This may be partially in the setting of osteoporosis/frequent coughing - reports pain is controlled at this time - Suspected pathological L rib fracture (4) Benign essential hypertension: - Stable - Continue Amlodipine 10 mg daily; Lisinopril/HCTZ daily Disposition: Complete treatment course; F/U with PCP Total Time Total Time Spent Total Time Spent (In Minutes): Greater than 30 minutes Discharge Plan Discharge Items Patient Disposition: Home - Self-Care Reason For Visit: INFLUENZA, PNA Discharge Diagnosis: Pneumonia after Influenza Activity: Resume your previous activity Non-emergency contact: Primary Care Provider Call non-emergency contact if: you have any medication questions, your symptoms worsen and you have a fever Follow-up/Referrals: Raj Grey MD [Primary Care Provider] - 09/06/19 2:30 pm Diet: Regular Addtl Attending Provider Instructions: Pneumonia: - Given that you had the flu and were getting better then got sick again we are treating you for a pneumonia. The chest XRay you had does show an area in the left lower lung that could be pneumonia. This could be atelectasis or where the little airways clamp down (which is common when ill). However your symptoms - worsening illness, fever, etc. it is best to treat this with antibiotics. - The IV antibiotics were given this morning. In IV form the ones we are using are once a day and therefore you do not need to start antibiotics until tomorrow 08/31 -- Take Cefdinir 300 mg twice a day starting on 08/31 x 5 more days -- Take Zithromax 250 mg daily starting on 08/31 x 3 more days - If you started the Tamiflu on Friday - today is actually day 5 of treatment and therefore can stop this as we have been using this on your in the hospital. - We will also give you a prescription for Mucinex to help thin out the mucous to make it easier to cough. It may be cheaper to buy over the counter but a prescription will be sent - Recommend to continue using an Albuterol inhaler four times a day for the next 2-3 days then you can use it as needed. This just helps keep the airways open. You will be sent home with the inhaler from here but will also send a prescr iption. If there is enough left over in the one from the hospital you may not need to picker tender helper the one we send in. Rib Fracture: - Your Xray also showed a nondisplaced fracture of the 6th rib on the left side. This may explain that acute pain you had that brought you in. - This will heal on its own. Can use Tylenol as needed. Home Medications: - Please continue your home medications as previously prescribed. We did not make any changes to them. Pending Studies at Discharge: No Stand-Alone Forms: [facility] [employer], Smoking Cessation Medications and DC Order Prescriptions: New guaifenesin [Mucinex] 600 mg Tablet Extended Release 12hr 1,200 mg PO Q12 5 Days Qty: 20 RF: 0 azithromycin 250 mg tablet 250 mg PO DAILY 3 Days Qty: 3 RF: 0 cefdinir 300 mg capsule 300 mg PO BID 5 Days Qty: 10 RF: 0 benzonatate [Tessalon Perles] 100 mg capsule 100 mg PO TID PRN (Reason: cough) 14 Days Qty: 42 RF: 0 Continued amlodipine 10 mg tablet 10 mg PO DAILY Qty: 90 RF: 3 lisinopril-hydrochlorothiazide 20-12.5 mg tablet 1 tab PO DAILY Qty: 90 RF: 3 Ca carb-Ca gluc-Mg ox-Mg gluco 500 mg calcium -250 mg tablet 1 tab PO DAILY Qty: 90 RF: 3 multivitamin capsule 1 cap PO DAILY Qty: 90 RF: 3 selenium 100 mcg tablet 100 mcg PO DAILY Qty: 90 RF: 3 cholecalciferol (vitamin D3) 5,000 unit tablet 5,000 units PO DAILY Qty: 90 RF: 3 vitamin E succinate 200 unit tablet 200 units PO DAILY Qty: 90 RF: 3 ascorbic acid (vitamin C) 1,000 mg tablet extended release 1,000 mg PO DAILY RF: 0 albuterol sulfate 90 mcg/actuation HFA aerosol inhaler 2 puffs INH QID PRN (Reason: shortness of breath) Qty: 18 RF: 0 Discontinued oseltamivir 75 mg capsule 75 mg PO BID 5 Days Qty: 10 RF: 0 Discharge Orders: Discharge Order (Routine); Ordered 08/31/19 Ordered By: Hafsa Guerra Admission Data Admit Date/Time: 08/30/19 02:48 Attending Provider: Jamarcus Pereira Admit Provider: Miriam Muñoz Primary Care Provider: Raj Grey Other Providers: Miriam Muñoz Other Interventions: Discharge Summary Assessment (RN) Last Done: 08/31/19 13:34 DC Date/Time DO NOT enter until pt leaves facility: 08/31/19 14:49 Supervising Physician Co-Signing Physician Notes Attending Attestation and Discharge note: Pt seen/examined, chart reviewed in detail, care plan d/w JIM Guerra. I agree w/ the moon components of her discharge documentation. 69yo female w/ recently diagnosed fluA infection. Started on tamiflu on 08/26/2019. Was beginning to feel better then developed worsening symptoms just prior to admission. Probable bacterial superinfection with LLL pneumonia as seen on x-ray. Started on IV abx for such. Also with Left-sided solitary rib fracture - suspect Fx occurred due to coughing. 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 Also with hyponatremia, hypokalemia, and hypomagnesemia - all electrolyte deficiencies replaced/resolved. HCTZ use could explain the low Na, K, and mag. At discharge her O2 sats in room air were wnl with walking. She will complete oral antibiotics for her LLL pneumonia; she has completed her tamiflu course for the fluA infection. Discharge exam: gen - NAD, coughing, nontoxic appearing mouth - MMM heart - RRR lungs - minimal end-exp wheeze; minimal left basilar fine rales abd - soft NT ext - no edema Jamarcus Pereira MD Coding Level of Care Code D/C Day Management >30 mins Diagnoses Pneumonia J18.9 Laterality: left Lung location: lower lobe of lung Pneumonia type: due to unspecified organism Influenza J11.1 Rib fracture S22.39XA Benign essential hypertension I10
== END 2019-08-31 14:49 | disposition home or self-care (01) | DRG 194 ==
LOC: ED 23:17 → SUATTDRO 08-30 02:48 → 4W 08-30 02:48 → INTOOBSV 08-30 02:48 → 4W 08-30 03:40